=== PATIENT | female | born 1965 | race Caucasian/White ===

== ENCOUNTER 2020-01-13 11:46 | Outpatient (CLI) | payer OTHER, SELFPAY ==
[2020-01-13 12:13] LABS: Basophils Absolute Auto 0.08 K/mm3 (0.00-0.10); Basophils Percent Auto 1.1 % (0.0-1.0); Eosinophils Absolute Auto 0.12 K/mm3 (0.02-0.50); Eosinophils Percent Auto 1.6 % (1.0-6.0); Hematocrit 43.6 % (35.0-49.0); Hemoglobin 14.5 g/dL (12.0-15.0); Immature Granulocyte Absolute 0.02 K/mm3 (0.00-0.00); Immature Granulocyte Percent A 0.3 % (0.0-0.0); Lymphocytes Absolute Auto 2.44 K/mm3 (1.10-4.50); Lymphocytes Percent Auto 33.2 % (18.0-42.0); Mean Corpuscular HGB Conc 33.3 g/dL (32.0-36.0); Mean Corpuscular Hemoglobin 31.7 pg (27.0-31.0); Mean Corpuscular Volume 95.4 fL (78.0-102.0); Mean Platelet Volume 8.8 fl (9.2-11.8); Monocytes Absolute Auto 0.45 K/mm3 (0.10-0.90); Monocytes Percent Auto 6.1 % (2.0-11.0); Neutrophils Absolute Auto 4.2 K/mm3 (1.7-7.2); Neutrophils Percent Auto 57.7 % (50.0-70.0); Platelet Count Result 416 K/mm3 (150-420); Red Blood Count 4.57 M/mm3 (4.20-5.40); Red Cell Distribution Width 12.7 % (11.6-14.4); White Blood Count 7.3 K/mm3 (4.8-10.8)
[2020-01-13 12:55] LABS: Alanine Aminotransferase 26 U/L (14-59); Albumin Level 4.1 g/dL (3.4-5.0); Alkaline Phosphatase 135 U/L (46-116); Aspartate Amino Transferase 30 U/L (15-37); Bilirubin,Total 0.4 mg/dL (0.00-1.00); Blood Urea Nitrogen 16 mg/dL (7-18); CRP < 0.2 mg/dL (0.0-0.9); Calcium 9.6 mg/dL (8.5-10.1); Carbon Dioxide 25 mmol/L (21-32); Chloride 102 mmol/L (98-108); Estimated Glomerular Filt Rate > 60; Glucose 95 mg/dL (70-99); Osmolality Calculated 289 mOsm/kg (285-295); Sodium 139 mmol/L (136-145); Total Protein 7.5 g/dL (6.4-8.2)
== END 2020-01-13 11:47 | disposition home or self-care (01) ==
LOC: CHSLAB 11:53
PROVIDERS: PCP Internal Medicine; Visit Provider Internal Medicine
DX: I73.00 Raynaud's syndrome without gangrene (principal); R23.0 Cyanosis
CPT/HCPCS: 36415; 80053; 85025; 86038; 86039; 86140

== ENCOUNTER 2020-01-14 08:23 | Outpatient (CLI) | payer OTHER, SELFPAY ==
--- NOTE | ~2020-01-14 | US_ITS ---
EXAMINATION: US art doppler w press LE BI DATE: 01/14/2020 09:31 INDICATION: Raynaud's phenomena. Bilateral toe cyanosis. TECHNIQUE: Segmental pressures and plethysmographic and Doppler waveforms of the brachial and lower e xtremity arteries were obtained. COMPARISON: None. FINDINGS: Right and left brachial artery pressures of 136 mm Hg and 143 mm Hg, respectively, are concordant (no rmal difference <= 30 mmHg). The right and left high-thigh pressure indices are 1.18 and 1.06, respec tively (normal > 1.2). The right ankle-brachial index (GONZALEZ) is 0.96 (normal >= 0.9-1). The right great toe-brachial index (T BI) is 0.71 (normal >= 0.6-0.8). The right lower extremity segmental pressure gradients are normal (n ormal gradients <= 20-30 mmHg between adjacent levels on the same leg or the same levels on the two l egs). Arterial waveforms are triphasic at the right common femoral and popliteal arteries and biphasi c in the remaining arteries with brisk systolic upstrokes throughout. The left GONZALEZ is 0.99. The left TBI is 0.69. The left lower extremity segmental pressure gradients are normal. Arterial waveforms are biphasic with brisk systolic upstrokes throughout. IMPRESSION: 1. Normal GONZALEZ's and TBI's bilaterally. No significant occlusive disease. Reviewed, dictated and finalized at location A.
== END 2020-01-14 08:24 | disposition home or self-care (01) ==
PROVIDERS: PCP Internal Medicine; Visit Provider Internal Medicine
DX: I73.00 Raynaud's syndrome without gangrene (principal); R23.0 Cyanosis
CPT/HCPCS: 93923

== ENCOUNTER 2020-05-05 14:19 | Outpatient (CLI) | payer OTHER, SELFPAY ==
--- NOTE | ~2020-05-05 | XR_ITS ---
EXAMINATION: XR chest 2V 05/05/2020 15:04 INDICATION: Preop. PROCEDURE: 2 view chest COMPARISON: No prior studies for comparison. FINDINGS: The lungs are clear. The cardiomediastinal silhouette is within normal limits. There are no pleural effusions. There is no pneumothorax suspected. IMPRESSION: 1: NO ACUTE CARDIOPULMONARY DISEASE. Reviewed, dictated and finalized at location A.
--- NOTE | 2020-05-05 14:50 | ECG_ITS ---
Measurements Intervals [place] Rate: 78 P: 57 UT: 136 QRS: 45 QRSD: 82 T: 54 QT: 374 QTc: 428 Interpretive Statements SINUS RHYTHM DELAYED PRECORDIAL R/S TRANSITION BASELINE ARTIFACT- II, III, AVF BORDERLINE ECG Electronically Signed On 05-05-2020 15:29:37 CDT by Sarath Collins D.O.
== END 2020-05-05 14:20 | disposition home or self-care (01) ==
LOC: CHSLAB 14:21
PROVIDERS: PCP Internal Medicine; Visit Provider Internal Medicine
DX: Z01.818 Encounter for other preprocedural examination (principal)
CPT/HCPCS: 71046; 93005

== ENCOUNTER 2020-08-25 10:20 | Outpatient (CLI) | payer OTHER, SELFPAY ==
--- NOTE | ~2020-08-25 | MM_ITS ---
EXAMINATION: MM scrn frannie implant BI w mica HISTORY: Screening mammogram TECHNIQUE: Craniocaudal and mediolateral oblique 3-D tomosynthesis images with implant displacement a nd synthetic 2-D images were generated. Craniocaudal and mediolateral oblique views of the breasts wi thout implant displacement were obtained using full field digital mammography. CAD analysis was submi tted and interpreted. COMPARISON: No prior mammogram is available for comparison at this institution. BREAST PARENCHYMAL COMPOSITION: The breasts are heterogeneously dense, which may obscure small masses . FINDINGS: There are focal masses in the central aspect of the right breast on CC view, not visualized on MLO view. No mammographic evidence for malignancy in the left breast. There are bilateral breast implants with partial capsular calcification of the left implant. IMPRESSION: 1. Focal right breast masses seen on CC view only. 2. Additional mammographic views and possible breast ultrasound are recommended. BI-RADS Category 0: Incomplete: Needs additional imaging evaluation. Reviewed, dictated and finalized at location A. GER PURCHASING IMPRESSION: 1. Focal right breast masses seen on CC view only. 2. Additional mammographic views and possible breast ultrasound are recommended . BI-RADS Category 0: Incomplete: Needs additional imaging evaluation.
== END 2020-08-25 10:21 | disposition home or self-care (01) ==
LOC: CHSIMG 10:22
PROVIDERS: PCP Internal Medicine; Visit Provider Internal Medicine
DX: Z12.31 Encounter for screening mammogram for malignant neoplasm of breast (principal)
CPT/HCPCS: 77063; 77067

== ENCOUNTER 2020-09-01 09:30 | Outpatient (CLI) | payer OTHER, SELFPAY ==
--- NOTE | ~2020-09-01 | MMUS_ITS ---
EXAMINATION: MM diag frannie implant RT w mica, US breast RT limited HISTORY: Possible right breast masses on screening mammogram TECHNIQUE: Additional 3-D tomosynthesis images of the right breast were performed and synthetic 2-D i mages were generated. CAD analysis was submitted and interpreted. High resolution limited right breas t ultrasound was performed. COMPARISON: 08/25/2020 FINDINGS: MAMMOGRAPHIC FINDINGS: There is a 3 mm round, obscured, equal density mass in the central, slightly inner breast at the 3:00 location 3 cm deep to the nipple. A second small asymmetry identified on recent screening mammogram is not definitely identified. ULTRASOUND: There is a 3 mm x 1 mm oval, circumscribed, parallel, hypoechoic mass with no posterior features or i nternal vascularity at the 3:00 location projecting near the nipple. IMPRESSION: 1. Probably benign right breast mass. 2. Recommend 6 month follow-up right diagnostic mammogram and ultrasound. BI-RADS category 3, probably benign findings. Reviewed, dictated and finalized at location A. 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 Probably benign right breast mass. 2. Recommend 6 month follow-up right diagnostic mammogram and ultrasound. BI-RADS category 3, probably benign findings.
== END 2020-09-01 09:31 | disposition home or self-care (01) ==
LOC: CHSIMG 09:33
PROVIDERS: PCP Internal Medicine; Visit Provider Internal Medicine
DX: R92.8 Other abnormal and inconclusive findings on diagnostic imaging of breast (principal)
CPT/HCPCS: 76642; 77061; 77065; G0279

== ENCOUNTER 2021-02-26 09:54 | Outpatient (CLI) | payer OTHER, SELFPAY ==
--- NOTE | ~2021-02-26 | MR_ITS ---
EXAMINATION: MR foot RT wo/w con DATE: 02/26/2021 11:12 INDICATION: Plantar fibroma at the right foot TECHNIQUE: Magnetic resonance imaging (MRI) of the right fore/mid foot was performed without intraven ous contrast. Sequences included sagittal T1-weighted FSE, sagittal fluid sensitive FSE STIR, coronal PD-weighted FS FSE, coronal T1-weighted FSE, axial PD-weighted FS FSE, and axial PD-weighted FSE. COMPARISON: None FINDINGS: Bone alignment is normal. Suggestion of an old healed fracture versus osteotomy at the neck of the fi fth metatarsal. 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 Otherwise normal marrow signal with no fracture or pathologic marrow replacing process. Lisfranc ligament complex and the collateral ligament complex a t the metatarsophalangeal and interphalangeal joints are normal. The flexor and extensor tendons are normal. There is a 10 x 9 x 7 mm mildly enhancing nodule along the plantar fascia located plantar to the head of the third metatarsal. There is a second more prominently enhancing nodule measuring 2.3 c m proximal to distal and 12 x 8 mm in maximal orthogonal dimensions along the plantar fascia plantar to the base of the first metatarsal. This is most consistent with plantar fibromatosis. There appear to be defects in the plantar fascial plantar to the base of the fourth and fifth metatarsals which schmidt ggests possible prior plantar fibroma resection at this location. Correlate with surgical history. IMPRESSION: 1. There are couple enhancing nonspecific soft tissue nodules along the plantar fascia as detailed mo st consistent with provided history of plantar fibromatosis. Reviewed, dictated and finalized at location A. IMPRESSION: 1. There are couple enhancing nonspecific soft tissue nodules along the plantar fascia as detailed most consistent with provided history of plantar fibromatos is.
[2021-02-26 10:40] LABS: Estimated Glomerular Filt Rate > 60
== END 2021-02-26 09:55 | disposition home or self-care (01) ==
PROVIDERS: PCP Internal Medicine; Visit Provider Nurse Practitioner
DX: M72.2 Plantar fascial fibromatosis (principal)
CPT/HCPCS: 73720; A9577

== ENCOUNTER 2021-12-31 10:09 | Outpatient (CLI) | payer OTHER, SELFPAY ==
[2021-12-31 10:24] LABS: Basophils Percent Auto 1.1 % (0.0-1.0); Eosinophils Absolute Auto 0.18 K/mm3 (0.02-0.50); Hematocrit 47.1 % (35.0-49.0); Hemoglobin 15.3 g/dL (12.0-15.0); Immature Granulocyte Absolute 0.04 K/mm3 (0.00-0.00); Immature Granulocyte Percent A 0.4 % (0.0-0.0); Lymphocytes Absolute Auto 2.82 K/mm3 (1.10-4.50); Lymphocytes Percent Auto 30.8 % (18.0-42.0); Mean Corpuscular HGB Conc 32.5 g/dL (32.0-36.0); Mean Corpuscular Volume 95.5 fL (78.0-102.0); Mean Platelet Volume 8.5 fl (9.2-11.8); Monocytes Absolute Auto 0.62 K/mm3 (0.10-0.90); Monocytes Percent Auto 6.8 % (2.0-11.0); Neutrophils Absolute Auto 5.4 K/mm3 (1.7-7.2); Neutrophils Percent Auto 58.9 % (50.0-70.0); Platelet Count Result 408 K/mm3 (150-420); Red Blood Count 4.93 M/mm3 (4.20-5.40); Red Cell Distribution Width 13.5 % (11.6-14.4); White Blood Count 9.2 K/mm3 (4.8-10.8)
[2021-12-31 10:49] LABS: Phosphorus 4.7 mg/dL (2.6-4.7); Thyroid Stimulating Hormone 2.45 uIU/mL (0.36-3.74)
[2022-01-03 20:55] LABS: Ionized Calcium 5.1 mg/dL (4.8-5.6)
[2022-01-03 23:06] LABS: Vitamin D 25 Hydroxy 18 ng/mL (30-100)
[2022-01-04 15:01] LABS: Vitamin D 1,25 (OH)2 Total 61 pg/mL (18-72); Vitamin D2 1,25 (OH)2 <8 pg/mL; Vitamin D3 1,25 (OH)2 61 pg/mL
[2022-01-05 06:29] LABS: Parathyroid Intact 60 pg/mL (14-64)
== END 2021-12-31 10:10 | disposition home or self-care (01) ==
LOC: CHSLAB 10:13
PROVIDERS: PCP Internal Medicine; Visit Provider Internal Medicine
DX: R94.6 Abnormal results of thyroid function studies (principal); M89.9 Disorder of bone, unspecified
CPT/HCPCS: 36415; 82306; 82330; 82652; 83970; 84100; 84443; 85025